=== PATIENT | female | born 1955 | race Caucasian/White ===

== ENCOUNTER 2018-09-21 06:14 | Emergency (ER) | payer OTHER ==
[2018-09-21] MEDS: IPRATROPIUM (NEB) 0.5 MG/2.5 ML AMP HHN (07:18)
[2018-09-21] MEDS: ALBUTEROL 0.083% (NEB) 2.5 MG/3 ML AMP HHN (07:18)
[2018-09-21] MEDS: DEXAMETHASONE 10 MG/ML 1 ML INJ IM (07:21)
== END 2018-09-21 08:37 | disposition home or self-care (01) ==
LOC: FTE 06:14
DX: R05 Cough (principal); J45.909 Unspecified asthma, uncomplicated; I10 Essential (primary) hypertension
CPT/HCPCS: 71045; 94664; 96372; 99284-25

== ENCOUNTER 2019-01-18 06:03 | Day surgery (SDC) | payer OTHER ==
[2019-01-18] MEDS ORDERED: PROPOFOL 40 ML (08:21)
== END 2019-01-18 09:24 | disposition home or self-care (01) ==
LOC: GIL 06:03
DX: Z12.11 Encounter for screening for malignant neoplasm of colon (principal); K64.8 Other hemorrhoids; K64.4 Residual hemorrhoidal skin tags; D12.6 Benign neoplasm of colon, unspecified; I10 Essential (primary) hypertension; E11.9 Type 2 diabetes mellitus without complications; J45.909 Unspecified asthma, uncomplicated
CPT/HCPCS: 45380; 82962; 88305